=== PATIENT | male | born 1945 | race Caucasian/White ===

== ENCOUNTER 2019-07-28 17:08 | Emergency (ER) | payer OTHER ==
[~2019-07-28] VITALS: Ht 175.3 cm; Wt 68.0 kg
[2019-07-28 17:19] VITALS: BP 145/66
--- NOTE | 2019-07-28 17:22 | NUR ---
RECEIVED A 73M TO ED FROM EMS FOR SUICIDAL IDEATION. PT IS ALERT TO NAME, BIRTHDAY, AND PLACE. PT STATES "ALL MY FRIENDS AND FAMILY ARE AND I'M HAPPY AND I'M READY TO " SUICIDAL PRECAUTIONS IN PLACE. 1:1 SITTER AT BEDSIDE.
--- NOTE | 2019-07-28 18:22 | NUR ---
GAVE PT ORANGE JUICE AND WATER; ENCOURAGED TO VOID.
[2019-07-28 18:44] LABS: BASOPHILS % (AUTO) 0.3 % (0.0-2.0); EOSINOPHILS # (AUTO) 0.2 K/uL (0-0.4); EOSINOPHILS % (AUTO) 2.2 % (0.0-4.0); HEMATOCRIT 39.3 % (36-52); HEMOGLOBIN 12.7 g/dL (12.0-18.0); LYMPHOCYTES # (AUTO) 1.2 K/uL (2.0-11.5); LYMPHOCYTES % (AUTO) 14.3 % (20.5-51.1); MEAN CORPUSCULAR HEMOGLOBIN 30 pg (27-31); MEAN CORPUSCULAR HGB CONC 32 g/dL (33-37); MONOCYTES # (AUTO) 0.7 K/uL (0.8-1.0); MONOCYTES % (AUTO) 8.3 % (1.7-9.3); NEUTROPHILS # (AUTO) 6.1 K/uL (1.8-7.7); NEUTROPHILS % (AUTO) 74.9 % (42.2-75.2); PLATELET COUNT (AUTO) 252 K/uL (140-450); RED BLOOD CELL COUNT(AUTO) 4.22 MIL/uL (4.20-6.10); RED CELL DISTRIBUTION WIDTH 15.2 % (11.6-13.7); WHITE BLOOD COUNT (AUTO) 8.2 K/uL (4.8-10.8)
[2019-07-28 19:04] LABS: ANION GAP 11.9 (8-16); CARBON DIOXIDE 29.5 mmol/L (21-32); CHLORIDE 99 mmol/L (98-107); CREATININE 0.9 mg/dL (0.7-1.3); GLUCOSE 147 mg/dL (74-106); POTASSIUM 4.4 mmol/L (3.5-5.1); SODIUM SERUM 136 mmol/L (136-145); UREA NITROGEN, BLOOD 16 mg/dL (7-18)
--- NOTE | 2019-07-28 19:05 | NUR ---
REPORT TO ASHLEY MIRELES. ALL CARE TRANSFERRED AT THIS TIME.
--- NOTE | 2019-07-28 19:05 | NUR ---
RECEIVED REPORT FROM ASHLEY FLOWERS.
[2019-07-28 19:11] LABS: ALBUMIN 3.3 g/dL (3.4-5.0); ASPARTATE AMINOTRANSFERASE 20 U/L (15-37); TOTAL BILIRUBIN 0.2 mg/dL (0.0-1.0)
[2019-07-28 19:15] LABS: SALICYLATE < 2.8 mg/dL (2.8-20.0)
[2019-07-28 19:30] LABS: ACETAMINOPHEN < 0.5 ug/ml (10-30)
--- NOTE | 2019-07-28 19:40 | NUR ---
PATIENT IS A/O X2 TO PERSON AND PLACE. SITTING QUIERTLY IN BED. 1:1 SITTER AT BEDSIDE. WILL CONTINUE TO MONITOR.
[2019-07-28 20:33] LABS: APPEARANCE,URINE CLEAR (CLEAR); BILIRUBIN,URINE NEGATIVE (NEGATIVE); BLOOD, URINE NEGATIVE (NEGATIVE); COLOR,URINE YELLOW (YELLOW); LEUKOCYTE ESTERASE ,URINE NEGATIVE (NEGATIVE); NITRITE, URINE NEGATIVE (NEGATIVE); UGLUCOSE NEGATIVE (NEGATIVE)
[2019-07-28 20:40] LABS: BARBITURATE, URINE NEG. ng/ml (NEG <=200); BENZODIAZEPINE, URINE NEG. ng/mL (NEG <=200); CANNABINOID, URINE NEG. ng/mL (NEG <=50); COCAINE, URINE NEG. ng/mL (NEG <=300); OPIATE, URINE POS. ng/mL (NEG <=2000); PHENCYCLIDINE SCREEN,URINE NEG. ng/mL (NEG <=25)
--- NOTE | 2019-07-28 20:49 | NUR ---
Dr. Edgar examining patient.
--- NOTE | 2019-07-28 20:55 | NUR ---
TELEPSYCH INITIATED PER DR. Diamond PÉREZ
--- NOTE | 2019-07-28 21:07 | NUR ---
PATIENT SITTING IN CHAIR. SLIGHTLY IRRITABLE. 1:1 SITTER AT BEDSIDE. WILL CONTINUE TO MONITOR.
--- NOTE | 2019-07-28 21:10 | NUR ---
TELEPSYCH DOCTOR SPEAKING WITH PATIENT
--- NOTE | 2019-07-28 21:18 | NUR ---
TELEPSYCH DOCTOR CALLED BACK AND SPOKE WITH DR. Diamond PÉREZ
--- NOTE | 2019-07-28 21:49 | NUR ---
PATIENT AMBULATED TO BATHROOM WITH 1:1 SITTER AT SIDE.
--- NOTE | 2019-07-28 22:32 | NUR ---
[facility] Aware of patient and will help with placement once patient is cleared and evaluated
[2019-07-28 22:42] VITALS: BP 138/67
--- NOTE | 2019-07-28 22:42 | NUR ---
Patient discharged with v/s stable. Written and verbal after care instructions given and explained. Patient verbalized understanding. Wheel Chair Assisted with to snf. All questions addressed prior to discharge. Advised to follow up with PMD.
--- NOTE | 2019-07-28 22:45 | NUR ---
PT TAKEN BY [facility] TO [facility]
== END 2019-07-28 22:42 | disposition home or self-care (01) ==
LOC: MED 17:08
DX: R45.851 Suicidal ideations (principal); F17.200 Nicotine dependence, unspecified, uncomplicated; R94.31 Abnormal electrocardiogram [ECG] [EKG]
CPT/HCPCS: 36415; 80053; 80305; 81003; 85025; 93005; 99284; G0480; G0482